=== PATIENT | male | born 1965 | race Caucasian/White ===

== ENCOUNTER 2018-08-05 14:30 | Emergency (ER) | payer OTHER | END 2018-08-05 17:24 | disposition left against medical advice (07) | LOC: M ED 14:30 | DX: Z53.29 Procedure and treatment not carried out because of patient's decision for other reasons (principal) ==

== ENCOUNTER → 2018-11-16 | Outpatient (REF) | payer MEDICARE ==
[2018-11-16 17:29] LABS: ALBUMIN 4.2 GM/DL (3.2-5.2); ALT/SGPT 37 U/L (12-78); BILIRUBIN,TOTAL 0.4 MG/DL (0.2-1.0); BLOOD UREA NITROGEN 18 MG/DL (7-18); CARBON DIOXIDE LEVEL 28 MEQ/L (21-32); CHLORIDE LEVEL 106 MEQ/L (98-107); CHOLESTEROL LEVEL 201 MG/DL (<200); CHOLESTEROL RISK RATIO 3.589 (<5); CREATININE FOR GFR 1.15 MG/DL (0.70-1.30); GLOMERULAR FILTRATION RATE > 60.0 (>56); GLUCOSE, FASTING 110 MG/DL (70-100); HDL CHOLESTEROL 56 MG/DL (>40); LDL CHOLESTEROL 128 MG/DL (<100); NON-HDL-C 145 MG/DL; POTASSIUM SERUM 4.4 MEQ/L (3.5-5.1); SODIUM LEVEL 141 MEQ/L (136-145); TOTAL PROTEIN 7.2 GM/DL (6.4-8.2); TRIGLYCERIDES LEVEL 87 MG/DL (<150)
== END ==
LOC: M SFHCCLAY 09:54
PROVIDERS: ATTEND Family Medicine
DX: Z13.220 Encounter for screening for lipoid disorders (principal); Z13.1 Encounter for screening for diabetes mellitus

== ENCOUNTER → 2018-11-24 | Outpatient (REF) | payer MEDICARE ==
[2018-11-24 17:39] LABS: HEMOGLOBIN A1c 5.6 %
== END ==
LOC: M SFHCCLAY 11:05
PROVIDERS: ATTEND Family Medicine
DX: R73.01 Impaired fasting glucose (principal)
CPT/HCPCS: 83036; G0463

== ENCOUNTER → 2020-03-17 | Outpatient (CLI) | payer MEDICARE, OTHER ==
--- NOTE | 2020-05-08 07:44 | SLEEPHOME ---
DATE: 03/17/2020 ORDERED BY: Dr. Lidia Ruiz Diagnostic home sleep test was performed due to concern for the obstructive sleep apnea syndrome in this patient with excessive somnolence. For testing, a nocturnal T3 respiratory monitoring device was used. Continuous record was of pulse, oxygen saturation, air flow, chest and abdominal strain, and body position. There was 9 hour and 59 minutes of data reviewed. There was 8 hours and 4 minutes marked as time in bed. During the interval marked time in bed, there were 29 respiratory events identified of 10 seconds in duration or greater for a respiratory event index of 7.1. The events were obstructive, not exclusive to body posture. Baseline pulse rate was 54 beats per minute. Pulse rate ranged 54- 92. Baseline saturation 96%. Saturations fell to 89%. Testing was performed in both the supine and non-supine positions. IMPRESSION: Abnormal home sleep testing with repository respiratory events and oxygen desaturations to 89% with a respiratory event index of 7.1 is consistent with the obstructive sleep apnea syndrome. RECOMMENDATION: The patient should be encouraged to undergo formal sleep evaluation. /jesus GHOSH
== END ==
LOC: M SLEEP HO 10:00
PROVIDERS: ATTEND Physician Assistant Medical
DX: R40.0 Somnolence (principal)

== ENCOUNTER → 2021-04-18 | Outpatient (CLI) | payer OTHER ==
--- NOTE | 2021-04-18 16:28 | REP ---
INDICATION: LUMBAGO WITH SCIATICA, LEFT SIDE COMPARISON: None. TECHNIQUE: AP, lateral, bilateral oblique, and coned-down views of the lumbar spine. FINDINGS: Alignment and lordosis maintained. Vertebral bodies are intact. No acute fracture/compression injury or subluxation. Moderate multilevel degenerative changes include endplate sclerosis, early osteophytosis, disc space narrowing and facet hypertrophy most notably involving L4-5 and L5-S1. IMPRESSION: Moderate degenerative changes progressively increasing towards L4-5 and L5-S1. <Electronically signed by Paul Lynn > 04/18/21 1311
== END ==
LOC: M PLAIMG 16:04
PROVIDERS: ATTEND Physician Assistant
DX: M54.42 Lumbago with sciatica, left side (principal); M51.36 Other intervertebral disc degeneration, lumbar region; M51.37 Other intervertebral disc degeneration, lumbosacral region

== ENCOUNTER → 2022-04-12 | Outpatient (CLI) | payer OTHER ==
[2022-04-12 13:56] LABS: BASO # 0.1 10^3/uL (0.0-0.2); BASO % 1.7 % (0.0-1.0); EOS # 0.3 10^3/uL (0.0-0.5); EOS % 4.8 % (0.0-3.0); HEMATOCRIT 43.8 % (42.0-52.0); HEMOGLOBIN 14.2 g/dl (13.5-17.5); LYMPH % 33.7 % (24.0-44.0); MEAN CORPUSCULAR HEMOGLOBIN 30.9 pg (27.0-33.0); MEAN CORPUSCULAR HGB CONC 32.4 g/dl (32.0-36.5); MEAN CORPUSCULAR VOLUME 95.2 fl (80.0-96.0); MONO # 0.5 10^3/uL (0.0-0.8); MONO % 8.7 % (2.0-8.0); NEUTROPHILS # 2.9 10^3/uL (1.5-8.5); NEUTROPHILS % 49.9 % (36.0-66.0); PLATELET COUNT, AUTOMATED 186 10^3/uL (150-450); WHITE BLOOD COUNT 5.9 10^3/uL (4.0-10.0)
[2022-04-12 14:41] LABS: ALBUMIN 3.7 GM/DL (3.2-5.2); ALT/SGPT 34 U/L (12-78); BILIRUBIN,TOTAL 0.2 MG/DL (0.2-1.0); BLOOD UREA NITROGEN 27 MG/DL (7-18); CALCIUM LEVEL 8.8 MG/DL (8.5-10.1); CARBON DIOXIDE LEVEL 30 MEQ/L (21-32); CHLORIDE LEVEL 106 MEQ/L (98-107); CREATININE FOR GFR 0.92 MG/DL (0.70-1.30); GLOMERULAR FILTRATION RATE > 60.0 (>56); GLUCOSE, FASTING 116 MG/DL (70-100); POTASSIUM SERUM 4.2 MEQ/L (3.5-5.1); SODIUM LEVEL 139 MEQ/L (136-145); TOTAL PROTEIN 6.8 GM/DL (6.4-8.2)
== END ==
LOC: M PLALAB 10:35
PROVIDERS: ATTEND Family Medicine
DX: R41.840 Attention and concentration deficit (principal); M54.41 Lumbago with sciatica, right side; Z13.1 Encounter for screening for diabetes mellitus
CPT/HCPCS: 36415; 80053; 80307; 85025; G0103

== ENCOUNTER → 2024-01-07 | Outpatient (CLI) | payer OTHER ==
[~2024-01-07] MED LIST: KETO10TAB PO; LIDO5DIS41 TOP; PROHANCE 279.3MG/ML 15ML VIAL As Ordered ONE; PROHANCE 279.3MG/ML 5ML VIAL As Ordered ONE
== END ==
LOC: M RAD 08:35
PROVIDERS: ATTEND Orthopaedic Surgery
DX: M51.26 Other intervertebral disc displacement, lumbar region (principal); M51.36 Other intervertebral disc degeneration, lumbar region
CPT/HCPCS: 72158; A9576